=== PATIENT | male | born 1945 | race Caucasian/White ===

== ENCOUNTER → 2016-09-02 | Outpatient (CLI) | payer OTHER ==
[~2016-09-02] MED LIST: ASPIRIN325 PO; AVAPRO300 MG PO; BENICAR HCT 401 EAC1 PO; CARDIZEM CD 18180 M3 PO; COLACE100 MG PO; DIFLUCAN150 MG PO; ELIQUIS2.5 MG PO; ELIQUIS5 MG PO; FLECAINIDE ACE150 MG PO; FLECAINIDE ACET50 M1 PO; HYDROCHLOROTHIA25 M2 PO; HYDROCODON-ACE1 EAC7 PO; IMODIUM ADVANC1 EAC1 PO; IRBESARTAN-HCT1 EAC1 PO; KEFLEX500 MG PO; LOPRESSOR25 PO; LOSARTAN-HCTZ1 EAC1 PO; NORCO 5-325 TA1 EACH PO; PANTOPRAZOLE SO40 M1 PO; PRILOSEC 20 MG20 MG PO; PRINZIDE 20-251 EACH; PROBIOTIC1 EAC1 PO; PROBIOTIC1 EACH PO; PROTONIX40 M1 PO; PROZAC 20 MG20 MG PO; PROZAC20 MG PO; TAMBOCOR 100 M100 M1 PO; TOPROL XL25 MG PO; URECHOLINE 25 M25 MG PO; VICODIN 5-5001 EACH PO; ZYRTEC10 M5 PO
== END ==
LOC: NUC 06:50
DX: R07.9 Chest pain, unspecified (principal)

== ENCOUNTER 2016-10-27 11:27 | Emergency (ER) | payer OTHER ==
[~2016-10-27] VITALS: Ht 185.4 cm; Wt 104.3 kg
[2016-10-27] MEDS ORDERED: CYMBALTA20 MG PO (11:48)
[2016-10-27] MEDS ORDERED: ASPIR 8181 MG PO (11:49)
== END 2016-10-27 13:00 | disposition home or self-care (01) ==
LOC: ER 11:27
DX: S90.02XA Contusion of left ankle, initial encounter (principal); I48.91 Unspecified atrial fibrillation; K21.9 Gastro-esophageal reflux disease without esophagitis; I10 Essential (primary) hypertension; F10.99 Alcohol use, unspecified with unspecified alcohol-induced disorder; Z98.42 Cataract extraction status, left eye; Z98.41 Cataract extraction status, right eye; Z98.890 Other specified postprocedural states; Z88.8 Allergy status to other drugs, medicaments and biological substances; W20.8XXA Other cause of strike by thrown, projected or falling object, initial encounter; Y93.89 Activity, other specified; Y92.89 Other specified places as the place of occurrence of the external cause; Y99.8 Other external cause status

== ENCOUNTER → 2016-12-17 | Outpatient (CLI) | payer OTHER ==
[~2016-12-17] MED LIST changes: +ASPIR 8181 MG PO; +CYMBALTA20 MG PO
[2016-12-17 10:40] LABS: ABSOLUTE NEUTROPHILS 4.9 thou/uL (1.4-8.2); BASOPHILS 0.7 % (0.0-2.0); EOSINOPHILS 1.6 % (0.0-3.0); HEMATOCRIT 45.8 % (42.0-52.0); HEMOGLOBIN 16.2 gm/dL (14.0-18.0); LYMPHOCYTES 16.6 % (24.0-44.0); MANUAL DIFF NO; MCH 34.1 pg (26.0-34.0); MCHC 35.5 g/dL (28.0-37.0); MCV 96.2 fL (80.0-100.0); MONOCYTES 9.7 % (1.0-8.0); PLATELET COUNT 241 thou/uL (150-400); POLYS 71.4 % (36.0-66.0); RBC 4.76 mil/uL (4.50-6.00); WBC 6.9 thou/uL (4.0-11.0)
[2016-12-17 10:43] LABS: CALCIUM 9.1 mg/dL (8.5-10.1); CREATININE 1.1 mg/dL (0.7-1.3); POTASSIUM 3.9 mmol/L (3.5-5.1)
[2016-12-17 10:49] LABS: ALBUMIN 4.3 g/dL (3.4-5.0); TOTAL BILIRUBIN 0.9 mg/dL (<0.1-1.0); TOTAL PROTEIN 6.8 g/dL (6.4-8.2)
== END ==
LOC: CAT 09:21
PROVIDERS: Family Medicine
DX: N28.1 Cyst of kidney, acquired (principal); K76.89 Other specified diseases of liver

== ENCOUNTER → 2018-02-10 | Outpatient (CLI) | payer OTHER ==
[~2018-02-10] VITALS: Ht 185.4 cm; Wt 104.3 kg
[~2018-02-10] MED LIST changes: +BYSTOLIC 5 MG5 M1 PO; +CENTRUM MEN'S1 EACH PO; +CYMBALTA30 MG PO; +FLONASE 0.05%50 MCG NASAL; +GAS RELIEF180 M1 PO; +NORVASC5 MG PO; +TRAZODONE HCL50 MG PO; +ZANTAC 150MG T150 MG PO
--- NOTE | ~2018-02-10 | P ---
[facility] [place] [address] PROCEDURE REPORT Name: PATRICIA DOUGLASS Room #: REG [facility]#: [id number] Admission: 02/10/18 Attend Phys: Gerardo Esteves MD Discharge: Date of : 43 Report #: [id number] THIS REPORT FOR: //name// CC: Gerardo Pereira MD DATE OF SERVICE: 02/10/2018 BRIEF HISTORY: The patient is a 72-year-old male with a history of multiple colon polyps for high-risk screening colonoscopy. He has also had a left midabdominal pain. PREOPERATIVE DIAGNOSES: High-risk screening colonoscopy due to history of colon polyps and abdominal pain. POSTOPERATIVE DIAGNOSES: 1. Colon polyps. 2. Rectal polyp. 3. Moderate left-sided diverticulosis coli. MEDICATIONS: Deep sedation with propofol per anesthesia. SPECIMEN: Rectal polyp. ESTIMATED BLOOD LOSS: 3 mL. PROCEDURE: Colonoscopy to cecum and terminal ileum with cold snare polypectomy and biopsy. FINDINGS: Prior to propofol sedation, the procedure of colonoscopy discussed with the patient as well as potential risks and its complications. He indicates he understands and desires to proceed. DESCRIPTION OF PROCEDURE: With the patient in left lateral decubitus position, digital examination was completed, which revealed no abnormalities. Subsequently, the Olympus video colonoscope was introduced in the rectum, advanced under direct vision to the cecum. Done with minimal difficulty. The cecum was identified by the ileocecal valve and the appendiceal orifice. I was able to visualize the distal segment of terminal ileum, which was inspected and noted to be unremarkable. At that point, the scope was slowly withdrawn and careful circumferential views obtained. Upon slow withdrawal of the scope, there were noted to be some limitations of the prep with retained bilious material, mostly in the proximal colon; some of it was quite adherent and would not easily washed away. We cleaned up as well as possible, but could not remove all this material. Within these limitations, the small lesions or flat lesions [address] [address] PROCEDURE REPORT Name: WILEYADELAIDAPATRICIA REDD Room #: REG [facility] Narciso.#: [id number] Admission: 02/10/18 Attend Phys: Gerardo Esteves MD Discharge: Date of : 43 Report #: [id number] potentially could have been overlooked. However, as we withdrew the scope in the proximal ascending colon, a 6-7-mm sessile polyp was seen and removed by cold snare polypectomy. However, the polyp was lost and we were not able to recover the specimen. The scope was further withdrawn and occasional scattered diverticulum was seen. There was noted to be kjuf-co-hcseaoxk sigmoid diverticular disease without endoscopic evidence of diverticulitis. No additional neoplastic lesions were seen until the rectum was reached and a diminutive polyp with an adenomatous appearance was seen and removed with biopsy forceps. The scope was withdrawn. The patient tolerated the procedure well. CONDITION OF THE PATIENT UPON DISCHARGE: Following procedure, the patient drowsy and arousable. He will be discharged home when fully ambulatory. INSTRUCTIONS TO THE PATIENT AND FAMILY AT THE TIME OF DISCHARGE: Two polyps identified, 1 was lost in attempts to recover. It looked like adenoma. It had a benign appearance. However, due to the fact there were limitations of prep as well as history of polyps, we will have him return in 3 years for followup colon exam. As far as abdominal pain, I do not see lesions, which would explain abdominal pain. Please see upper endoscopy report for additional details. He will return to care of Dr. Devaughn Pereira and return to see me as needed. Note that last colonoscopy was 2-1/2 years ago. Withdrawal time from the cecum was 17 minutes 22 seconds. <ELECTRONICALLY SIGNED> By: Gerardo Esteves MD 02/12/18 1553 1013 1226 Gerardo Esteves MD /nt
--- NOTE | ~2018-02-10 | PATH ---
[facility] [place] [address] [address] PATHOLOGY RPT PROCEDURE Name: PATRICIA DOUGLASS Room #: REG [facility] Vivian.#: [id number] Admission: 02/10/18 Date of : 43 Discharge: Report #: [id number] Path Case #: [id number] [facility] Accession Number: [id number] . 01 Material submitted: . PART A: BX OF DUODENAL ULCER PART B: BX OF GASTRITIS R/O H. PYLORI PART C: POLYP AT RECTUM . 01 Clinical history: . GERD, Hx polyps, abdominal pain . 02 Diagnosis: A. Small bowel mucosa, duodenal ulcers, endoscopic biopsy: - Fundic-type metaplasia along with mild inflammation, compatible with mild peptic duodenitis. - Negative for villous blunting or increase in intraepithelial lymphocytes. - Negative for dysplasia or malignancy. . B. Gastric mucosa, gastritis, endoscopic biopsy: - Moderate reactive gastropathy. - Negative for intestinal metaplasia or atrophy. - Negative for Helicobacter pylori (properly controlled immunohistochemical stain performed). . C. Polyp, rectum, endoscopic biopsy: - Hyperplastic polyp. - Negative for dysplasia. (IUV:pit 02/11/2018) QTP/02/11/2018 . 02 Electronically signed: . Nikki Duron MD, Pathologist NPI- [id number] . 01 Gross description: . A. Received in formalin labeled "Patricia Douglass, BX of duodenal ulcers," are multiple segments of milligan soft tissue measuring 0.9 x 0.4 x 0.1 cm in aggregate dimensions. The specimen is filtered and entirely submitted in cassette A1. . B. Received in formalin labeled "Patricia Douglass, BX of gastritis, rule out H. pylori," are 4 segments of milligan soft tissue measuring 0.9 x 0.6 x 0.2 cm in aggregate dimensions and ranging from 0.3 to 0.5 cm in maximum dimension. The specimen is submitted entirely in cassette B1. . [place] [address] PATHOLOGY RPT PROCEDURE Name: PATRICIA DOUGLASS BLACK LICK Room #: REG [facility].#: [id number] Admission: 02/10/18 Date of : 43 Discharge: Report #: [id number] Path Case #: [id number] C. Received in formalin labeled "Patricia Douglass, polyp at rectum," are 3 segments of milligan soft tissue measuring 0.7 x 0.4 x 0.2 cm in aggregate dimensions and ranging from 0.1 to 0.3 cm in maximum dimension. The specimen is submitted entirely in cassette C1. (TSD; 02/10/2018) TOB/TOB . 02 Pathologist provided ICD-10: K29.80, K31.9, K62.1 . 02 CPT . 427424, 634789, 265851, F52653 Specimen Comment: A courtesy copy of this report has been sent to Specimen Comment: [phone], . Specimen Comment: Report sent to / DR VASQUEZ Performed at: [address] [facility], [place] [id number] MD Brad Rushing MD Phone: [phone] Performed at: [address] [id number] MD Nikki Duron MD Phone: [phone]
--- NOTE | ~2018-02-10 | P ---
[facility] [place] [address] PROCEDURE REPORT Name: PATRICIA DOUGLASS Room #: REG [facility]#: [id number] Admission: 02/10/18 Attend Phys: Gerardo Esteves MD Discharge: Date of : 43 Report #: [id number] THIS REPORT FOR: //name// CC: Gerardo Pereira MD OUTPATIENT UPPER ENDOSCOPY REPORT BRIEF HISTORY: The patient is a 72-year-old male who has had a left mid abdominal pain, which has been chronic and also complains of increasing hoarseness, some heartburn symptoms and intermittent dysphagia. He is on Zantac twice daily. He has had previous esophageal dilation. PREOPERATIVE DIAGNOSES: Abdominal pain, reflux symptoms and dysphagia. POSTOPERATIVE DIAGNOSES: 1. Multiple superficial duodenal ulcers, second portion. 2. Moderate gastritis. MEDICATIONS: Deep sedation with propofol per anesthesia. SPECIMENS: 1. Biopsies of duodenal ulcers. 2. Biopsies of gastritis. ESTIMATED BLOOD LOSS: 3 mL. PROCEDURE: EGD with biopsy and Jimenez dilation. FINDINGS: Prior to propofol sedation, the procedure of upper endoscopy and dilation was reviewed with the patient as well as potential risks and its complications. He indicates he understands and desires to proceed. DESCRIPTION OF PROCEDURE: With the patient in the left lateral decubitus position, the Olympus video endoscope was inserted in the cervical esophagus under direct vision without any difficulty. Examination of this organ through its entire length revealed normal esophageal mucosa down the squamocolumnar junction. I did not see evidence of reflux esophagitis or Monzon mucosa. A significant hiatus hernia was not identified. The scope was advanced into the stomach, which was examined on end views as well as retroflexed views. There was a moderate antral gastritis. No ulcers or erosions were seen. Upon retroflexion, no mass lesions were seen. The pylorus was unremarkable. Duodenal bulb was unremarkable. Interestingly, there were multiple superficial ulcers in the second portion of the duodenum. They were all shallow. There was no stigmata of bleeding. They appeared to be on the edges of folds. [facility] [address] [place] [address] PROCEDURE REPORT Name: PATRICIA DOUGLASS Room #: REG [facility].#: [id number] Admission: 02/10/18 Attend Phys: Gerardo Esteves MD Discharge: Date of : 43 Report #: [id number] duodenal papilla was seen and yellow bile was seen streaming from it. Third portion of the duodenum was unremarkable. At that point, the scope was slowly withdrawn and careful circumferential views were obtained. Biopsies were obtained of the ulcers in the duodenum and we also obtained biopsies of the gastric mucosa to evaluate for H. pylori. Scope was withdrawn. The patient tolerated the procedure well. Subsequently, the patient was dilated with passage of a 52-Italian Jimenez dilator. There was no resistance. CONDITION OF THE PATIENT UPON DISCHARGE: Following the procedure, the patient drowsy and then prepared for colonoscopy. INSTRUCTIONS TO THE PATIENT AND FAMILY AT THE TIME OF DISCHARGE: Etiology also is not entirely clear. They were in an unusual position in the second portion of the duodenum. I am not aware if the patient is taking nonsteroidals. So, we will discuss further with him. This possibly may be the source of his pain. Also, I would wonder about the possibility of ischemia. We will follow up on biopsies and make further recommendations. Diagnostic studies as needed. We will also have him start pantoprazole 40 mg twice daily. He should return for dilation of the esophagus. If he has recurrence of symptoms of dysphagia. <ELECTRONICALLY SIGNED> By: Gerardo Esteves MD 02/12/18 1553 0940 1232 Gerardo Esteves MD /nt
== END | disposition home or self-care (01) ==
LOC: GI 07:17
DX: Z12.11 Encounter for screening for malignant neoplasm of colon (principal); Z86.010 Personal history of colon polyps; K62.1 Rectal polyp; K63.5 Polyp of colon; K57.30 Diverticulosis of large intestine without perforation or abscess without bleeding; K29.80 Duodenitis without bleeding; K31.9 Disease of stomach and duodenum, unspecified; K26.9 Duodenal ulcer, unspecified as acute or chronic, without hemorrhage or perforation; K21.9 Gastro-esophageal reflux disease without esophagitis; I10 Essential (primary) hypertension; I48.91 Unspecified atrial fibrillation; G47.33 Obstructive sleep apnea (adult) (pediatric); Z79.01 Long term (current) use of anticoagulants; Z87.891 Personal history of nicotine dependence; Z79.899 Other long term (current) drug therapy; Z90.49 Acquired absence of other specified parts of digestive tract; Z98.41 Cataract extraction status, right eye; Z98.42 Cataract extraction status, left eye; Z98.890 Other specified postprocedural states; Z88.8 Allergy status to other drugs, medicaments and biological substances
CPT/HCPCS: 62110; 62900

== ENCOUNTER 2018-11-28 08:14 | Emergency (ER) | payer OTHER ==
[~2018-11-28] VITALS: Ht 185.4 cm; Wt 105.2 kg
[2018-11-28] MEDS ORDERED: PROTONIX 20 MG20 MG PO (08:28)
[2018-11-28] MEDS ORDERED: PROTONIX40 M1 PO (08:29)
[2018-11-28] MEDS ORDERED: ASPIRIN325 PO (08:30)
[2018-11-28 09:13] LABS: ABSOLUTE NEUTROPHILS 5.3 thou/uL (1.4-8.2); BASOPHILS 0.7 % (0.0-2.0); HEMATOCRIT 41.1 % (42.0-52.0); HEMOGLOBIN 14.7 gm/dL (14.0-18.0); LYMPHOCYTES 11.8 % (24.0-44.0); MCH 33.3 pg (26.0-34.0); MCHC 35.8 g/dL (28.0-37.0); MONOCYTES 7.9 % (1.0-8.0); PLATELET COUNT 268 thou/uL (150-400); POLYS 78.6 % (36.0-66.0); RBC 4.42 mil/uL (4.50-6.00); RDW 12.5 % (10.5-14.5); WBC 6.8 thou/uL (4.0-11.0)
[2018-11-28] MEDS ORDERED: CARDIZEM CD240 MG PO (09:14)
[2018-11-28 09:21] LABS: ANION GAP 11 mmol/L (7-16); BUN 9 mg/dL (7-18); CHLORIDE 95 mmol/L (98-107); CO2 25 mmol/L (21-32); GLUCOSE 109 mg/dL (74-106); POTASSIUM 3.9 mmol/L (3.5-5.1); SODIUM 131 mmol/L (136-145)
[2018-11-28 09:32] LABS: ALBUMIN 3.9 g/dL (3.4-5.0); LIPASE 228 U/L (73-393); SGOT 20 U/L (15-37); SGPT 24 U/L (30-65); TOTAL BILIRUBIN 0.6 mg/dL (<0.1-1.0); TROPONIN-I <0.06 ng/mL (<0.06)
[2018-11-28 09:38] LABS: ANISOCYTOSIS 1+
[2018-11-28 11:54] VITALS: BP 144/81
--- NOTE | 2018-11-29 09:11 | EKG ---
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
== END 2018-11-28 11:55 | disposition home or self-care (01) ==
LOC: ER 08:14
PROVIDERS: Emergency Medicine
DX: R53.1 Weakness (principal); I10 Essential (primary) hypertension; K58.9 Irritable bowel syndrome, unspecified; I48.91 Unspecified atrial fibrillation; K21.9 Gastro-esophageal reflux disease without esophagitis; G47.30 Sleep apnea, unspecified; Z98.890 Other specified postprocedural states; Z90.49 Acquired absence of other specified parts of digestive tract; Z98.41 Cataract extraction status, right eye; Z98.42 Cataract extraction status, left eye; Z88.8 Allergy status to other drugs, medicaments and biological substances; Z87.891 Personal history of nicotine dependence

== ENCOUNTER → 2018-12-14 | Outpatient (CLI) | payer OTHER ==
[~2018-12-14] MED LIST changes: +CARDIZEM CD240 MG PO; +PROTONIX 20 MG20 MG PO
== END ==
LOC: NUC 07:05
DX: R07.9 Chest pain, unspecified (principal); E78.5 Hyperlipidemia, unspecified; I10 Essential (primary) hypertension; Z87.891 Personal history of nicotine dependence; Z79.899 Other long term (current) drug therapy

== ENCOUNTER 2019-01-24 06:39 | Emergency (ER) | payer OTHER ==
[~2019-01-24] VITALS: Ht 182.9 cm; Wt 101.6 kg
[2019-01-24 06:44] VITALS: BP 149/116
[2019-01-24 07:16] LABS: ABSOLUTE NEUTROPHILS 5.2 thou/uL (1.4-8.2); BASOPHILS 0.6 % (0.0-2.0); EOSINOPHILS 1.7 % (0.0-3.0); HEMATOCRIT 45.9 % (42.0-52.0); HEMOGLOBIN 16.1 gm/dL (14.0-18.0); LYMPHOCYTES 15.2 % (24.0-44.0); MCH 32.8 pg (26.0-34.0); MCHC 35.1 g/dL (28.0-37.0); MCV 93.5 fL (80.0-100.0); MONOCYTES 10.6 % (1.0-8.0); PLATELET COUNT 258 thou/uL (150-400); POLYS 71.9 % (36.0-66.0); RBC 4.91 mil/uL (4.50-6.00); RDW 12.6 % (10.5-14.5); WBC 7.3 thou/uL (4.0-11.0)
[2019-01-24 07:22] LABS: AMP/METHAMP Negative (Negative); BARBITURATES Negative (Negative); BENZODIAZEPINES Negative (Negative); COCAINE Negative (Negative); METHADONE Negative (Negative); OPIATES Negative (Negative); PCP Negative (Negative)
[2019-01-24 07:25] LABS: ANION GAP 13 mmol/L (7-16); BUN 11 mg/dL (7-18); CALCIUM 9.4 mg/dL (8.5-10.1); CHLORIDE 101 mmol/L (98-107); CO2 24 mmol/L (21-32); CREATININE 1.1 mg/dL (0.7-1.3); GLUCOSE 116 mg/dL (74-106); POTASSIUM 3.4 mmol/L (3.5-5.1); SODIUM 138 mmol/L (136-145)
[2019-01-24 07:27] LABS: PROTIME 9.6 Seconds (9.3-11.4)
[2019-01-24 07:36] LABS: ALBUMIN 4.1 g/dL (3.4-5.0); APTT 26.9 Seconds (24.5-32.8); SGOT 20 U/L (15-37); SGPT 23 U/L (30-65); TOTAL BILIRUBIN 0.5 mg/dL (<0.1-1.0); TOTAL PROTEIN 7.7 g/dL (6.4-8.2); TROPONIN-I <0.06 ng/mL (<0.06)
--- NOTE | 2019-01-24 08:38 | EKG ---
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 : 1945 Requested By: Carlo Way Order Number: [id number] MD: Carmelo Scott Measurements Intervals [place] Rate: 138 P: SD: QRS: -4 QRSD: 98 T: -3 QT: 317 QTc: 481 Interpretive Statements Atrial fibrillation Repolarization abnormality, prob rate related Borderline prolonged QT interval Compared to ECG 11/28/2018 08:17:09 Atrial fibrillation is now present Electronically Signed On 01-24-2019 8:38:27 CDT by Carmelo Scott [email or web address] <ELECTRONICALLY SIGNED> By: Carmelo Scott MD, [facility] 01/24/19 0838 0 Carmelo Scott MD, [facility] /EPI
[2019-01-24 09:35] VITALS: BP 118/76
== END 2019-01-24 09:45 | disposition home or self-care (01) ==
LOC: ER 06:39 → EROBS 08:25
PROVIDERS: Emergency Medicine
DX: I48.91 Unspecified atrial fibrillation (principal); I10 Essential (primary) hypertension; K21.9 Gastro-esophageal reflux disease without esophagitis; G47.30 Sleep apnea, unspecified; Z90.49 Acquired absence of other specified parts of digestive tract; Z98.890 Other specified postprocedural states; Z88.8 Allergy status to other drugs, medicaments and biological substances; Z87.891 Personal history of nicotine dependence

== ENCOUNTER → 2019-05-31 | Outpatient (CLI) | payer OTHER | LOC: SJCVC 14:08 | DX: I48.91 Unspecified atrial fibrillation (principal); I10 Essential (primary) hypertension; G47.33 Obstructive sleep apnea (adult) (pediatric); E78.5 Hyperlipidemia, unspecified; E78.00 Pure hypercholesterolemia, unspecified; E66.9 Obesity, unspecified; Z79.82 Long term (current) use of aspirin; Z79.899 Other long term (current) drug therapy; Z87.891 Personal history of nicotine dependence ==

== ENCOUNTER 2019-11-28 09:55 | Emergency (ER) | payer OTHER ==
[~2019-11-28] VITALS: Ht 182.9 cm; Wt 108.9 kg
[2019-11-28 10:22] LABS: ABSOLUTE NEUTROPHILS 3.8 thou/uL (1.4-8.2); BASOPHILS 0.5 % (0.0-2.0); EOSINOPHILS 1.3 % (0.0-3.0); HEMATOCRIT 40.9 % (42.0-52.0); HEMOGLOBIN 14.4 gm/dL (14.0-18.0); LYMPHOCYTES 16.5 % (24.0-44.0); MCH 33.3 pg (26.0-34.0); MCHC 35.3 g/dL (28.0-37.0); MCV 94.3 fL (80.0-100.0); MONOCYTES 10.9 % (1.0-8.0); PLATELET COUNT 247 thou/uL (150-400); POLYS 70.8 % (36.0-66.0); RBC 4.33 mil/uL (4.50-6.00); RDW 13.3 % (10.5-14.5); WBC 5.4 thou/uL (4.0-11.0)
[2019-11-28 10:30] LABS: ANION GAP 12 mmol/L (7-16); BUN 10 mg/dL (7-18); CALCIUM 8.7 mg/dL (8.5-10.1); CHLORIDE 98 mmol/L (98-107); CO2 25 mmol/L (21-32); CREATININE 1.1 mg/dL (0.7-1.3); GLUCOSE 108 mg/dL (74-106); SODIUM 135 mmol/L (136-145)
[2019-11-28 10:40] LABS: MAGNESIUM 2.1 mg/dL (1.8-2.4); SGOT 22 U/L (15-37); SGPT 32 U/L (30-65); TOTAL BILIRUBIN 0.6 mg/dL (0.2-1.0); TOTAL PROTEIN 7.4 g/dL (6.4-8.2); TROPONIN-I <0.06 ng/mL (<0.06)
[2019-11-28] MEDS ORDERED: VALIUM2 MG PO (11:47)
[2019-11-28] MEDS ORDERED: MECLIZINE HCL25 M1 PO (11:47)
[2019-11-28] MEDS ORDERED: NORFLEX100 MG PO (11:47)
[2019-11-28 12:24] VITALS: BP 139/72
--- NOTE | 2019-11-28 16:29 | EKG ---
[facility] [place] [address] [place] [address] ELECTROCARDIOGRAM REPORT Name: PATRICIA DOUGLASS [facility] [id number] Admission: 11/28/19 Attend Phys: Discharge: 11/28/19 Date of : 43 Report #: [id number] THIS REPORT FOR: cc: Devaughn Pereira MD, Rene P. 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 NIXON : 1945 Requested By: Carlo Way Order Number: [id number] MD: Carmelo Scott Measurements Intervals [place] Rate: 68 P: -58 DE: 256 QRS: -21 QRSD: 105 T: 4 QT: 413 QTc: 440 Interpretive Statements Sinus rhythm Prolonged DE interval Borderline left axis deviation Baseline wander in lead(s) V1,V2 Compared to ECG 01/24/2019 06:41:34 Sinus rhythm has replaced atrial fibrillation Electronically Signed On 11-28-2019 16:28:55 CDT by Carmelo Scott [email or web address] <ELECTRONICALLY SIGNED> By: Carmelo Scott MD, FAC 11/28/19 1628 1001 1001 Carmelo Sctot MD, FAC /EPI
== END 2019-11-28 12:24 | disposition home or self-care (01) ==
LOC: ER 09:55
PROVIDERS: Emergency Medicine
DX: R07.9 Chest pain, unspecified (principal); M54.2 Cervicalgia; R42 Dizziness and giddiness; M25.512 Pain in left shoulder; I10 Essential (primary) hypertension; I48.91 Unspecified atrial fibrillation; K21.9 Gastro-esophageal reflux disease without esophagitis; Z79.899 Other long term (current) drug therapy; Z87.891 Personal history of nicotine dependence; Z88.8 Allergy status to other drugs, medicaments and biological substances

== ENCOUNTER → 2019-12-06 | Outpatient (CLI) | payer OTHER ==
[~2019-12-06] MED LIST changes: +MECLIZINE HCL25 M1 PO; +NORFLEX100 MG PO; +VALIUM2 MG PO
== END ==
LOC: SJCVC 12:56
PROVIDERS: ATTEND Internal Medicine Cardiovascular Disease
DX: I44.0 Atrioventricular block, first degree (principal); I48.0 Paroxysmal atrial fibrillation; Z79.899 Other long term (current) drug therapy; Z87.891 Personal history of nicotine dependence

== ENCOUNTER → 2020-06-06 | Outpatient (CLI) | payer OTHER | LOC: SJCVC 12:48 | PROVIDERS: ATTEND Internal Medicine Cardiovascular Disease | DX: I44.0 Atrioventricular block, first degree (principal); I48.0 Paroxysmal atrial fibrillation; G47.33 Obstructive sleep apnea (adult) (pediatric); I10 Essential (primary) hypertension; K21.9 Gastro-esophageal reflux disease without esophagitis; E78.00 Pure hypercholesterolemia, unspecified; E66.01 Morbid (severe) obesity due to excess calories; Z87.891 Personal history of nicotine dependence; Z72.89 Other problems related to lifestyle; Z79.899 Other long term (current) drug therapy; Z79.82 Long term (current) use of aspirin; Z88.8 Allergy status to other drugs, medicaments and biological substances ==

== ENCOUNTER → 2020-12-03 | Outpatient (CLI) | payer OTHER | LOC: SJCVC 13:10 | PROVIDERS: ATTEND Internal Medicine Cardiovascular Disease | DX: I44.0 Atrioventricular block, first degree (principal); I48.0 Paroxysmal atrial fibrillation; I10 Essential (primary) hypertension; G47.33 Obstructive sleep apnea (adult) (pediatric); E78.00 Pure hypercholesterolemia, unspecified; E66.9 Obesity, unspecified; Z79.82 Long term (current) use of aspirin; Z79.899 Other long term (current) drug therapy; Z87.891 Personal history of nicotine dependence; Z72.89 Other problems related to lifestyle; Z88.8 Allergy status to other drugs, medicaments and biological substances ==

== ENCOUNTER → 2021-03-10 | Outpatient (CLI) | payer OTHER | LOC: LAB 10:12 | PROVIDERS: ATTEND Student in an Organized Health Care Education/Training Program | DX: Z01.812 Encounter for preprocedural laboratory examination (principal); Z20.822 Contact with and (suspected) exposure to COVID-19 ==

== ENCOUNTER → 2021-03-12 | Outpatient (CLI) | payer OTHER ==
--- NOTE | 2021-03-14 10:36 | P ---
[facility] [place] [address] PROCEDURE REPORT Name: PATRICIA DOUGLASS [facility] [id number] Admission: 03/12/21 Attend Phys: Phi Griggs Discharge: Date of : 43 Report #: [id number] THIS REPORT FOR: cc: Devaughn Pereira MD, Rene P. MD McElhinney, Christian C. MD ~ cc: Devaughn Pereira MD DATE OF SERVICE: 03/12/2021 PROCEDURE PERFORMED: Colonoscopy with polypectomies. HISTORY OF PRESENT ILLNESS: The patient is a 75-year-old male with a history of colon polyps. He is here for routine followup. Denies any symptoms other than constipation. No family history of colon cancer. DESCRIPTION OF PROCEDURE: The risks and benefits of the procedure were explained to the patient, those risks including but not limited to bleeding, perforation and the risk of sedation. He understood these risks and gave informed consent. Sedation was given using propofol per anesthesia. Next, a digital rectal exam was initially performed, which was normal. Next, using a standard Olympus colonoscope, the scope was placed in the patient's anus and advanced under direct vision to the cecum. The overall prep was good. The cecum and ileocecal valve were normal in appearance. In the ascending colon, a 7 mm sessile polyp was noted. This was removed by snare cautery, otherwise normal. In the transverse colon, a 4 mm sessile polyp was noted and removed with cold forceps. Multiple diverticula were noted in the descending and sigmoid colon. The rectal mucosa was normal. On retroflexion, no abnormalities were noted. The scope was then withdrawn and the procedure terminated. The patient tolerated the procedure well. IMPRESSION: 1. Two colonic polyps. 2. Left-sided diverticulosis. 3. Otherwise, normal colonoscopy. RECOMMENDATIONS: 1. Await biopsy results. 2. Repeat colonoscopy in 5 years. Thank you for allowing me to participate in his care. <ELECTRONICALLY SIGNED> By: Phi Cash MD 03/14/21 1036 1028 2132 Phi Cash MD /nt
--- NOTE | 2021-03-14 18:06 | PATH ---
[facility] [place] [address] [address] PATHOLOGY RPT PROCEDURE Name: PATRICIA DOUGLASS Room #: REG [facility] M..#: [id number] Admission: 03/12/21 Date of : 41 Discharge: Report #: [id number] Path Case #: [id number] [facility] Accession Number: [id number] . 01 Material submitted: . PART A: colon - ASCENDING COLON POLYP. Modifiers: ascending PART B: colon - TRANSVERSE COLON POLYP. Modifiers: transverse . 01 Clinical history: . HX OF POLYPS . 01 Diagnosis: A. Colonic mucosa, "ascending colon polyp", biopsy: - Fragments of tubular adenoma. - There is no evidence of high-grade dysplasia or malignancy. . B. Colonic mucosa, "transverse colon polyp", biopsy: - One fragment reveals a prominent lymphoid follicle. - The other fragment reveals hyperplastic changes consistent with hyperplastic polyp. - There is no evidence of adenomatous change, high-grade dysplasia or malignancy. . (PAULO:makayla; 03/14/2021) MBR 03/14/2021 [facility] . 01 Electronically signed: . Glenn Suarez MD, Pathologist NPI- [id number] . 01 Gross description: . A. The specimen is received in formalin, labeled "Leti, Patricia, ascending colon polyp" and consists of multiple milligan irregular tissues aggregating 1.0 x 0.7 x 0.3 cm which are filtered and submitted in toto in A1. . B. The specimen is received in formalin, labeled "Leti, Patricia, transverse colon polyp" and consists of 2 milligan irregular tissues aggregating 0.5 x 0.3 x 0.2 cm which are submitted in toto in B1.(HAMILTON; 03/13/2021) DKA/DKA 03/13/2021 1123 Local . 01 Pathologist provided ICD-10: D12.2, Z86.010 . 01 CPT . 190296, 612477 [address] [address] PATHOLOGY RPT PROCEDURE Name: PATRICIA DOUGLASSNARD Room #: [facility] [id number] Admission: 03/12/21 Date of : 41 Discharge: Report #: [id number] Path Case #: [id number] Specimen Comment: A courtesy copy of this report has been sent to [phone], [phone] Specimen Comment: [phone] Specimen Comment: Report sent to / DR VASQUEZ Performed at: [address], [place], [place] [id number] MD Glenn Suarez MD Phone: [phone]
== END | disposition home or self-care (01) ==
LOC: GI 06:26
PROVIDERS: ATTEND Specialist
DX: K59.00 Constipation, unspecified (principal); D12.2 Benign neoplasm of ascending colon; K57.30 Diverticulosis of large intestine without perforation or abscess without bleeding; I48.91 Unspecified atrial fibrillation; Z98.890 Other specified postprocedural states; Z79.899 Other long term (current) drug therapy; Z86.010 Personal history of colon polyps; Z79.01 Long term (current) use of anticoagulants; Z88.8 Allergy status to other drugs, medicaments and biological substances
CPT/HCPCS: 62110; 62900